=== PATIENT | male | born 1965 | race Caucasian/White ===

== ENCOUNTER 2018-02-10 05:22 | Emergency (ER) | payer OTHER ==
--- NOTE | 2018-02-10 06:18 | ER Document Report ---
ED Medical Screen (RME) - General Chief Complaint: Back Pain Stated Complaint: BACK PAIN Time Seen by Provider: 02/10/18 06:17 TRAVEL OUTSIDE OF THE [place] IN LAST 30 DAYS: No Physical Exam - Vital signs Vitals: Temp Pulse Resp BP Pulse Ox 97 F L 73 16 98/61 L 96 02/10/18 05:32 02/10/18 05:32 02/10/18 05:32 02/10/18 05:32 02/10/18 05:32 Course - Vital Signs Vital signs: Temp Pulse Resp BP Pulse Ox 97 F L 73 16 98/61 L 96 02/10/18 05:32 02/10/18 05:32 02/10/18 05:32 02/10/18 05:32 02/10/18 05:32
[2018-02-10] MEDS ORDERED: KETOROLAC TROMETHAMINE 60 MG/2 ML SDV IM ONE (07:19)
[2018-02-10] MEDS ORDERED: MORPHINE SULFATE 10 MG/ML INJ IM ONE (07:19)
[2018-02-10 08:14] VITALS: BP 124/83
--- NOTE | 2018-02-10 08:22 | ER Document Report ---
ED Neck/Back Problem - General Chief Complaint: Back Pain Stated Complaint: BACK PAIN Time Seen by Provider: 02/10/18 06:17 Mode of Arrival: Ambulatory Information source: Patient TRAVEL OUTSIDE OF THE [place] IN LAST 30 DAYS: No - HPI Patient complains to provider of: Lower back - 52-year-old gentleman with a past medical history significant for lumbar fusion of L4 L5-S1 the presents for evaluation of the back spasm which started 2 days ago for which she is been utilizing heat and some Voltaren gel at home to try and help with. Notes that notes difficult to perform any of his daily functions which prompted him to seek evaluation today. He denies any loss of continence, urinary retention, numbness or weakness in the lower extremities. He just notes that his back really hurts. Was doing laundry at the time that the back pain started. He has had episodes like this in the past but never this intense before. - Related Data Allergies/Adverse Reactions: No Known Allergies Allergy (Unverified 02/10/18 07:02) Past Medical History - General Information source: Patient, Relative - Social History Smoking Status: Never Smoker Family History: None Patient has suicidal ideation: No Patient has homicidal ideation: No Renal/ Medical History: Denies: Hx Peritoneal Dialysis Past Surgical History: Reports: Hx Cholecystectomy, Hx Orthopedic Surgery - back, Hx Vascular Surgery Review of Systems - Review of Systems -: Yes All other systems reviewed and negative Physical Exam - Vital signs Vitals: Temp Pulse Resp BP Pulse Ox 97 F L 73 16 98/61 L 96 02/10/18 05:32 02/10/18 05:32 02/10/18 05:32 02/10/18 05:32 02/10/18 05:32 Interpretation: Normal - General General appearance: Anxious In distress: Mild - HEENT Head: Normocephalic, Atraumatic Eyes: Normal Pupils: PERRL - Respiratory Respiratory status: No respiratory distress Chest status: Nontender Breath sounds: Normal Chest palpation: Normal - Cardiovascular Rhythm: Regular Heart sounds: Normal auscultation Murmur: No - Abdominal Inspection: Normal Distension: No distension Bowel sounds: Normal Tenderness: Nontender Organomegaly: No organomegaly - Back Back: Tender - Tenderness in the paraspinal muscles. Most prominent in the inferior lumbar paraspinal muscles, no appreciable step-offs no appreciable deformities - Extremities General upper extremity: Normal inspection, Nontender, Normal color, Normal ROM, Normal temperature General lower extremity: Normal inspection, Nontender, Normal color, Normal ROM, Normal temperature, Normal weight bearing. No: Anastasia's sign - Neurological Neuro grossly intact: Yes Cognition: Normal Orientation: AAOx4 Hart Coma Scale Eye Opening: Spontaneous Hart Coma Scale Verbal: Oriented Hart Coma Scale Motor: Obeys Commands Serafin Coma Scale Total: 15 Speech: Normal Motor strength normal: LUE, RUE, LLE, RLE Sensory: Normal - Psychological Associated symptoms: Normal affect, Normal mood - Skin Skin Temperature: Warm Skin Moisture: Dry Skin Color: Normal Course - Re-evaluation Re-evalutation: 02/10/18 12:16 Here is a 52-year-old gentleman with back pain. He has a history of previous instrumentation in the back with a fusion of the lumbar spine. His history is consistent with likely musculoskeletal strain as he was exerting himself at the time it began. On examination he has a normal neurologic examination. He has no significant symptoms to suggest more serious underlying pathology such as but not limited to cauda equina syndrome, Chance fracture, some other more serious pathology epidural abscess etc. We will plan for aggressive analgesia in the emergency department. Gave IM morphine as well as Toradol. After which the patient was able to ambulate without assistance. Patient will be discharged with return precautions and a brief course of Flexeril as well as ibuprofen and 5 tablets for Berkley. - Vital Signs Vital signs: Temp Pulse Resp BP Pulse Ox 97 F L 73 16 98/61 L 96 02/10/18 05:32 02/10/18 05:32 02/10/18 05:32 02/10/18 05:32 02/10/18 05:32 Discharge - Discharge Clinical Impression: Back spasm Back pain Qualifiers: Back pain location: low back pain Chronicity: unspecified Back pain laterality: unspecified Sciatica presence: without sciatica Qualified Code(s): M54.5 - Low back pain Condition: Good Disposition: HOME, SELF-CARE Instructions: Low Back Pain ([facility]), Muscle Strain ([facility]), Oral Narcotic Medication ([facility]), Warm Packs ([facility]) Additional Instructions: You were seen today in the emergency department for your back spasms. Use the medications prescribed to you only as needed. Make sure that you are getting up and walking for at least 20 minutes twice daily. If you have loss of control of your bowels, cannot urinate, have new numbness or weakness in your lower extremities return to the emergency room because it could be an emergency. Otherwise schedule appointment with your spine surgeon of choice. Prescriptions: Cyclobenzaprine HCl [Flexeril 5 mg Tablet] 5 mg PO TID 3 Days #15 tablet Hydrocodone/Acetaminophen [Berkley 5-325 mg Tablet] 1 tab PO Q8 PRN 3 Days #6 t ablet PRN Reason: Ibuprofen [Ibu] 400 mg PO Q6 #40 tablet Referrals: [facility] [Primary Care Provider] - Follow up as needed
== END 2018-02-10 08:28 | disposition home or self-care (01) ==
LOC: ER 05:22
DX: M62.830 Muscle spasm of back (principal); M54.5 Low back pain; M54.9 Dorsalgia, unspecified
CPT/HCPCS: 99283; 96372; J1885; J2270

== ENCOUNTER 2018-11-25 09:41 | Day surgery (SDC) | payer OTHER ==
[~2018-11-25 09:41] MED LIST: CEFAZOLIN SODIUM 1 GM in DEXTROSE 5%-WATER 50 ML IV PRN; LACTATED RINGERS 1000 ML IV PRN; LIDOCAINE 0.5% INJ-PF (5 MG/ML) 50 ML SDV SUBCUT PRN
[2018-11-25] MEDS ORDERED: ONDANSETRON HCL INJ/PF 4 MG/2 ML SDV ONE ×2 (12:15→15:34)
[2018-11-25] MEDS ORDERED: NEOSTIGMINE METHYLSULFATE 10 MG/10 ML VIAL ONE (12:15)
[2018-11-25] MEDS ORDERED: KETOROLAC TROMETHAMINE 60 MG/2 ML SDV ONE (12:15)
[2018-11-25] MEDS ORDERED: DEXAMETHASONE SOD PHOSPHATE INJ 4 MG/1 ML VIAL ONE (12:15)
[2018-11-25] MEDS ORDERED: ROCURONIUM BROMIDE INJ 50 MG/5 ML VIAL IV ONE (12:15)
[2018-11-25] MEDS ORDERED: GLYCOPYRROLATE 1 MG/5 ML VIAL ONE (12:15)
[2018-11-25] MEDS ORDERED: LIDOCAINE 2% INJ-PF (20 MG/ML) 2 ML AMPUL ONE (12:15)
[2018-11-25] MEDS ORDERED: SUCCINYLCHOLINE CHLORIDE INJ 200 MG/10 ML VIAL ONE (12:15)
[2018-11-25] MEDS ORDERED: BUPIVACAINE HCL 0.25 % INJ/PF (2.5 MG/1 ML) 30 ML VIAL ONE (12:36)
[2018-11-25] MEDS ORDERED: FENTANYL CITRATE INJ/PF 250 MCG/5 ML AMPULE ONE (12:48)
[2018-11-25] MEDS ORDERED: MORPHINE SULFATE 10 MG/ML INJ ONE (12:49)
[2018-11-25] MEDS ORDERED: MIDAZOLAM 2 MG/2 ML INJ ONE (12:49)
[2018-11-25] MEDS ORDERED: PROPOFOL INJ 200 MG/20 ML VIAL IV ONE (12:50)
[2018-11-25] MEDS ORDERED: MORPHINE SULFATE 10 MG/ML INJ IV PRN (13:56)
[2018-11-25] MEDS ORDERED: OXYCODONE-ACETAMINOPHEN 5-325 MG TABLET PO PRN ×3 (13:56→14:46)
[2018-11-25] MEDS ORDERED: DIPHENHYDRAMINE HCL 50 MG/ML VIAL IV PRN (13:56)
[2018-11-25] MEDS ORDERED: FENTANYL CITRATE INJ/PF 100 MCG/2 ML AMPUL IV PRN (13:56)
[2018-11-25] MEDS ORDERED: MEPERIDINE HCL/PF INJ 25 MG/1 ML DISP.SYRIN IV PRN (13:56)
[2018-11-25] MEDS ORDERED: PROMETHAZINE HCL INJ 25 MG/1 ML VIAL IV PRN (13:56)
[2018-11-25] MEDS ORDERED: BUPIVACAINE HCL 0.5 % INJ/PF 30 ML SDV INJ ONE (14:24)
--- NOTE | 2018-11-25 14:32 | Discharge Summary ---
Discharge Summary (SDC) - Discharge Final Diagnosis: bilateral inguinal hernia Date of Surgery: 11/25/18 Discharge Date: 11/25/18 Condition: Good Referrals: [facility] [Primary Care Provider] - Discharge Diet: As Tolerated Discharge Activity: Activity As Tolerated, No Lifting Over 10 Pounds, No Lifting/Push/Pulling Report the Following to Your Physician Immediately: Shortness of Breath, Nausea, Vomiting, Increase in Pain, Fever over 101 Degrees - needs a f/u with me inm 10- 14 days.
--- NOTE | 2018-11-25 14:45 | Operative Report ---
Nonrecallable Operative Report DATE OF SURGERY: 11/25/18 PREOPERATIVE DIAGNOSIS: recurrent left ingiunal hernia POSTOPERATIVE DIAGNOSIS: bilateral inguianl hernias OPERATION: laparoscopic repair of left recurrent inguinal hernia and lap repair of right inguinal henria SURGEON: REINALDO GOLD 1ST NURSING STAFFING COORDINATOR: MARIANNA MARTE ANESTHESIA: GA COMPLICATIONS: none ESTIMATED BLOOD LOSS: 10cc INTRAOPERATIVE FINDINGS: bilateral inguinal hernias PROCEDURE: She was brought to the operating room awake alert stable condition placed in the operating table supine position induced under general anesthesia intubated the abdomen was prepped and draped in usual sterile fashion and Sage catheter was placed after appropriate timeout site verification the procedure commenced. A infra umbilical incision was made with a 15 blade dissection was carried down through subcutaneous tissue with Bovie cautery to reached the fascia the rectus muscle which was identified. A transverse incision was made in the anterior rectus sheath and the muscle underneath was identified retracted laterally we created a plane on top of the posterior sheath. We then used the hernia Spacemaker balloon placed on the top of the posterior sheath and manipulated down to the pubic tubercle the dilator was then removed and the camera was placed into the balloon as was insufflated. We created a space in the retroperitoneum to do the repair. After the space was created the balloon was removed and the balloontipped trocar was placed into that incision. The trocar was placed the camera and then we placed 2 5 mm ports under direct vision in the midline. Attention was then turned to the left side first. we began dissecting the peritoneum from the lateral wall to identify the transversalis muscle. We then dissected the peritoneum away from the lateral wall to the internal ring where we mobilized out of the canal and posteriorizd it. Was then we checked for a direct humeral component there was none we used a piece of polypropylene mesh approximately 6 cm long by 4 cm wide placed a slit down the side and placed into the retroperitoneum acted posteriorly to the Robel's ligament anterior to the rectus fascia laterally to the transversalis fascia. We wrapped the cord with the mesh and tacked it laterally to the transversalis fascia. Please appear on the left side we then turned attention to the right side. Similarly we mobilized the peritoneum away from the lateral wall identifying transversalis muscle and then continued our dissection distally to the internal ring where we identified the lateral edge of the cord structures which noted to have the hernia lateral to that the sac was mobilized out of the inguinal canal. We also then checked for a direct component there was none. Then using a piece of polypropylene mesh 4 cm wide by 6 cm long with a slit down the side we placed that into the retroperitoneum fixed posteriorly to Robel's ligament anterior to the rectus fascia laterally transversalis fascia being careful again not to injure the lateral femoral cutaneous nerve. Once this was completed we reduce the pneumoperitoneum remove the ports closed the fascial defect of the umbilical port site with 0 Vicryl and closed all 3 skin incisions with intracuticular 4-0 Monocryl Steri-Strips completed the procedure estimated blood loss was negligible sponge needle counts correct x2 patient was awakened in the operating room extubated transferred recovery in stable condition no complications. Marianna colinelor BRUCE was present for the entire case for wound retraction wound closure.
[2018-11-25] MEDS ORDERED: OXYCODONE-ACETAMINOPHEN 5-325 MG TABLET ONE (15:28)
[2018-11-25] MEDS ORDERED: METOCLOPRAMIDE HCL INJ/PF 10 MG/2 ML SDV ONE (15:34)
[2018-11-25] MEDS ORDERED: DIPHENHYDRAMINE HCL 50 MG/ML VIAL ONE (15:34)
[2018-11-25] MEDS ORDERED: DIPHENHYDRAMINE HCL 50 MG/ML VIAL INJ ONE (15:50)
[2018-11-25] MEDS ORDERED: METOCLOPRAMIDE HCL INJ/PF 10 MG/2 ML SDV IV ONE (15:55)
[2018-11-25] MEDS ORDERED: ONDANSETRON HCL INJ/PF 4 MG/2 ML SDV IV ONE (16:00)
[2018-11-25 20:05] VITALS: BP 115/73
== END 2018-11-25 16:45 | disposition home or self-care (01) ==
LOC: OROUT 09:41
PROVIDERS: ATTEND Surgery
DX: K40.91 Unilateral inguinal hernia, without obstruction or gangrene, recurrent (principal); K40.90 Unilateral inguinal hernia, without obstruction or gangrene, not specified as recurrent
CPT/HCPCS: 49651; 49650; C1781; J2250; J0690; J3490 ×3; J1100; J1200; J1885; J3010; J2765; J2710; J0330; J2405; J7060; J2704; 840; J2270